=== PATIENT | female | born 1965 | race Caucasian/White ===

== ENCOUNTER 2019-09-08 14:16 | Outpatient (CLI) | payer OTHER ==
[~2019-09-08] VITALS: Ht 170.2 cm; Wt 79.5 kg
[2019-09-08] MEDS ORDERED: FENO134C PO (14:18)
[2019-09-08] MEDS ORDERED: LEVO50TA6 PO (14:18)
[2019-09-08] MEDS ORDERED: RT-ALBUINH INH (14:18)
== END 2019-09-08 14:19 | disposition home or self-care (01) ==
LOC: PREOP 14:16
PROVIDERS: ATTEND Surgery
DX: Z01.818 Encounter for other preprocedural examination (principal)

== ENCOUNTER → 2022-02-09 | Outpatient (CLI) | payer OTHER ==
[~2022-02-09] MED LIST: FENO134C21 PO; LEVO50TA6 PO; RT-ALBUINH INH
--- NOTE | 2022-02-09 15:58 | Diagnostic Imaging Report ---
INDICATION: Back pain. FINDINGS: Vertebral body heights are normal. There is slight spinal listhesis at L5-S1. Intervertebral disc spaces are well maintained. There is some facet arthropathy at L4-L5 and L5-S1. IMPRESSION: Mild degenerative changes of the lumbar spine. No acute abnormality is seen. Dictated by: Dictated on workstation # [id number]
== END ==
LOC: RAD FS 10:49
PROVIDERS: ATTEND Nurse Practitioner
DX: M47.816 Spondylosis without myelopathy or radiculopathy, lumbar region (principal)
CPT/HCPCS: 72100

== ENCOUNTER → 2022-03-29 | Outpatient (CLI) | payer OTHER | LOC: CARDFS 09:55 | PROVIDERS: ATTEND Family Medicine | DX: I35.1 Nonrheumatic aortic (valve) insufficiency (principal); I51.7 Cardiomegaly | CPT/HCPCS: 93306 ==